=== PATIENT | male | born 2000 | race Caucasian/White ===

== ENCOUNTER 2024-01-15 22:05 | Emergency (ER) | payer SELFPAY ==
[~2024-01-15] VITALS: Ht 175.3 cm; Wt 65.8 kg
[2024-01-15 23:09] VITALS: TEMP 98.6
[2024-01-15] MEDS ORDERED: IBUPROFEN 600 MG TABLET ONE (23:28)
[2024-01-15] MEDS: IBUPROFEN 600 MG TABLET PO ONE (23:30)
[2024-01-16] MEDS ORDERED: IBUP-1953 PO (01:46)
[2024-01-16 01:50] VITALS: BP 125/78; O2SAT 98
== END 2024-01-16 01:50 | disposition home or self-care (01) ==
LOC: ER 22:20
DX: S16.1XXA Strain of muscle, fascia and tendon at neck level, initial encounter (principal); S20.212A Contusion of left front wall of thorax, initial encounter; V43.52XA Car driver injured in collision with other type car in traffic accident, initial encounter; Y93.89 Activity, other specified; Y92.488 Other paved roadways as the place of occurrence of the external cause; Y99.8 Other external cause status
CPT/HCPCS: 71100-TC; 72050-TC